=== PATIENT | female | born 1955 | race Caucasian/White ===

== ENCOUNTER 2016-08-27 09:06 | Emergency (ER) | payer MEDICARE, OTHER | END 2016-08-27 10:16 | disposition home or self-care (01) | LOC: ER1 09:06 | DX: S05.01XA Injury of conjunctiva and corneal abrasion without foreign body, right eye, initial encounter (principal); X58.XXXA Exposure to other specified factors, initial encounter | CPT/HCPCS: 99283 ==

== ENCOUNTER → 2020-08-09 | Outpatient (CLI) | payer MEDICARE, OTHER | LOC: HEART 5 07-25 14:00 | DX: R00.2 Palpitations (principal); Z87.898 Personal history of other specified conditions ==

== ENCOUNTER → 2020-10-26 | Outpatient (CLI) | payer MEDICARE, OTHER | LOC: HEART 5 08:30 | DX: I48.0 Paroxysmal atrial fibrillation (principal); I08.1 Rheumatic disorders of both mitral and tricuspid valves | CPT/HCPCS: 93306 ==

== ENCOUNTER 2021-10-30 10:19 | Emergency (ER) | payer MEDICARE, OTHER | END 2021-10-30 13:06 | disposition home or self-care (01) | LOC: ER1 10:19 | DX: M79.671 Pain in right foot (principal); I10 Essential (primary) hypertension; Z88.2 Allergy status to sulfonamides | CPT/HCPCS: 73630; 99283 ==